=== PATIENT | female | born 1950 | race Caucasian/White ===

== ENCOUNTER → 2022-05-12 | Outpatient (CLI) | payer MEDICARE ==
--- NOTE | 2022-05-13 07:44 | CT ---
EXAMINATION TYPE: CT left knee - [facility] Protocol DATE OF EXAM: 05/12/2022 COMPARISON: None HISTORY: pre-op left total knee CT DLP: 844.[address] for YIFAN robotic assisted procedure left lower extremity. Imaging was obt ained from the left hip through the ankle. 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 Marginal [place] spur about the femoral condyles and tibial plateaus. Intercondylar spur formation noted as well. M ild widening of the lateral tibial femoral joint space. Additional spur formation appreciated. Severe narrowing patellofemoral joint space with extensive spur formation seen. Suprapatellar loose body no cassie. No fracture or bony lesion within the [id number]. IMPRESSION: 1. Surgical planning CT as noted.
== END | disposition home or self-care (01) ==
LOC: RADCTMAIN 17:17
PROVIDERS: ATTEND Orthopaedic Surgery
DX: Z01.818 Encounter for other preprocedural examination (principal); M17.12 Unilateral primary osteoarthritis, left knee

== ENCOUNTER → 2022-05-17 | Outpatient (CLI) | payer MEDICARE ==
[2022-05-17 14:11] LABS: Partial Thromboplastin Time 24.2 sec (22.0-30.0); Prothrombin Time 10.7 sec (9.0-12.0)
[2022-05-17 18:12] LABS: HGB 13.2 g/dL (12.0-15.0); MCH 29.5 pg (27.0-32.0); MCHC 31.4 g/dL (32.0-37.0); Mean Platelet Volume 10.7 fL (9.5-12.2); NRBC Per 100 WBC 0 /100 WBCS (0.0-0.0); Platelet Count 254 X 10*3/uL (140-440); RBC 4.47 X 10*6/uL (4.10-5.20); WBC 9.06 X 10*3/uL (4.50-10.00)
[2022-05-17 18:25] LABS: African American GFR (CKD) 101.4 (60.0-200.0); Albumin 4.1 g/dL (3.8-4.9); Albumin/Globulin Ratio 1.53 (1.60-3.17); Anion Gap 12.3 mmol/L (10.00-18.00); BUN/Creat Ratio 19.32 Ratio (12.00-20.00); Blood Urea Nitrogen 13.1 mg/dL (9.0-27.0); Carbon Dioxide 23.9 mmol/L (20.0-27.5); Globulin 2.7 g/dL (1.6-3.3); Non-African American GFR(CKD) 87.5 (60.0-200.0); Potassium 4.2 mmol/L (3.5-5.5); Total Bilirubin 0.3 mg/dL (0.30-1.20); Total Protein 6.7 g/dL (6.2-8.2)
[2022-05-17 18:49] LABS: Appearance,Urine Cloudy (Clear); Bilirubin,Urine Negative (Negative); Blood,Urine Negative (Negative); Color,Urine Dark Yellow (Yellow); Ketones,Urine Trace mg/dL (Negative); Nitrite,Urine Negative (Negative); Specific Gravity,Urine 1.029 (1.001-1.030)
[2022-05-17 19:21] LABS: Bacteria,Urine 1+ /HPF (None Seen)
== END | disposition home or self-care (01) ==
LOC: LABWHC1 13:00
PROVIDERS: ATTEND Orthopaedic Surgery
DX: Z01.812 Encounter for preprocedural laboratory examination (principal); M17.12 Unilateral primary osteoarthritis, left knee
CPT/HCPCS: 36415; 80053; 81001; 85027; 85610; 85730; 87070